=== PATIENT | female | born 1985 | race American Indian/Alaskan Native ===

== ENCOUNTER 2017-07-05 18:17 | Emergency (ER) | payer OTHER ==
[2017-07-05 20:00] LABS: Basophils % (Auto) 0.4 % (0.0-1.8); Eosinophils # (Auto) 0.2 K/mm3 (0.0-0.4); Hematocrit 36.5 % (30.3-42.9); Lymphocytes # (Auto) 1.8 K/mm3 (1.2-5.4); Lymphocytes % (Auto) 22.6 % (13.4-35.0); Mean Corpuscular HGB Conc 33 % (30-34); Mean Corpuscular Hemoglobin 29 pg (28-32); Mean Corpuscular Volume 89 fl (79-97); Monocytes # (Auto) 0.7 K/mm3 (0.0-0.8); Monocytes % (Auto) 9.1 % (0.0-7.3); Platelet Count 271 K/mm3 (140-440); Red Blood Count 4.12 M/mm3 (3.65-5.03); Red Cell Distribution Width 12.9 % (13.2-15.2)
[2017-07-05 20:28] LABS: Alanine Aminotransferase 6 units/L (7-56); Albumin 4.3 g/dL (3.9-5); BUN/Creatinine Ratio 13; Blood Urea Nitrogen 8 mg/dL (7-17); Calcium 8.9 mg/dL (8.4-10.2); Hemolysis Index 18
[2017-07-05] MEDS ORDERED: ZOFRAN ODT PO ONE (20:44)
[2017-07-05] MEDS ORDERED: MOTRIN PO ONE (20:47)
--- NOTE | 2017-07-05 20:47 | Emergency Department Report ---
<MIS INGRAM - Last Filed: 07/05/17 23:18> ED Female HPI - General Chief complaint: Abdominal Pain Stated complaint: PELVIC PAIN Time Seen by Provider: 07/05/17 20:39 Source: patient Mode of arrival: Ambulatory Limitations: No Limitations - History of Present Illness Initial comments: 32-year-old -Maldivian female with a past medical history endometriosis and ovarian cysts comes in today for complaint of pelvic pain. Patient reports that pain started 2 days ago. She reports that the pain was severe enough for her to take her ibuprofen on Tuesday night which she report help but woke up today Tuesday with pelvic pain and did not take any medication. Patient reports that she was seen by her [facility] doctor 2 [address] Jacki Comer at [facility] in detail. She reports at that time there were not able to locate her IUD. Patient reports that the pain is very similar to the last time she had an ovarian cyst. Patient reports that her IUD is over due to come out. And that her [facility] doctor mentions something about doing surgery to get it out. Patient denies any vaginal bleeding denies any vaginal discharge. MD Complaint: pelvic pain -: During the night Location: suprapubic Severity scale (0 -10): 9 Quality: cramping Consistency: constant Improves with: medication Worsens with: menstrual period Associated Symptoms: abdominal pain. denies: vaginal discharge, vaginal bleeding, loss of appetite, dysuria, shortness of breath, syncope, weakness - Related Data Sexually active: Yes (L foot pain) Previous Rx's Medication Instructions Recorded Last Taken Type metroNIDAZOLE [Metronidazole] 500 mg PO BID #14 tablet 07/06/17 Unknown Rx traMADol [Ultram 50 MG tab] 50 mg PO Q6HR PRN #30 tablet 07/06/17 Unknown Rx Allergies Allergy/AdvReac Type Severity Reaction Status Date / Time No Known Allergies Allergy Unverified 07/05/17 19:32 ED Review of Systems ROS: Stated complaint: PELVIC PAIN Other details as noted in HPI Constitutional: denies: chills, fever Eyes: denies: eye pain, eye discharge, vision change ENT: denies: ear pain, throat pain Respiratory: denies: cough, shortness of breath, wheezing Cardiovascular: denies: chest pain, palpitations Endocrine: no symptoms reported Gastrointestinal: as per HPI, abdominal pain (pelvic pain), nausea. denies: vomiting, diarrhea, constipation, hematemesis, melena, hematochezia Genitourinary: frequency. denies: dysuria Musculoskeletal: denies: back pain Skin: denies: rash, lesions Neurological: denies: headache, weakness, paresthesias Psychiatric: denies: anxiety, depression Hematological/Lymphatic: denies: easy bleeding, easy bruising ED Past Medical Hx - Past Medical History Previous Medical History?: Yes Additional medical history: endometriosis - Surgical History Past Surgical History?: Yes Additional Surgical History: tonsils removed, laser sx for cyst removal, bunion removed - Social History Smoking Status: Never Smoker Substance Use Type: None - Medications Home Medications: Home Medications Medication Instructions Recorded Confirmed Last Taken Type metroNIDAZOLE [Metronidazole] 500 mg PO BID #14 tablet 07/06/17 Unknown Rx traMADol [Ultram 50 MG tab] 50 mg PO Q6HR PRN #30 tablet 07/06/17 Unknown Rx ED Physical Exam - General Limitations: No Limitations General appearance: alert, in no apparent distress - Head Head exam: Present: atraumatic, normocephalic - Eye Eye exam: Present: normal appearance - ENT ENT exam: Present: mucous membranes moist - Neck Neck exam: Present: normal inspection - Respiratory Respiratory exam: Present: normal lung sounds bilaterally. Absent: respiratory distress - Cardiovascular Cardiovascular Exam: Present: regular rate, normal rhythm. Absent: systolic murmur, diastolic murmur, rubs, gallop - GI/Abdominal GI/Abdominal exam: Present: soft, normal bowel sounds - Speculum exam: Present: vaginal discharge, cervical discharge Bi-manual exam: Present: normal bi-manual exam. Absent: cervical motion tendernes, adnexal tenderness, adnexal mass, uterine enlargement, uterine tenderness - Extremities Exam Extremities exam: Present: normal inspection - Back Exam Back exam: Present: normal inspection - Neurological Exam Neurological exam: Present: alert, oriented X3 - Psychiatric Psychiatric exam: Present: normal affect, normal mood - Skin Skin exam: Present: warm, dry, intact, normal color. Absent: rash ED Course Vital Signs 07/05/17 07/05/17 19:32 20:47 Temperature 98.4 F 99.4 F Pulse Rate 88 81 Respiratory 16 Rate Blood Pressure 137/88 125/85 O2 Sat by Pulse 14 L 100 Oximetry - Reevaluation(s) Reevaluation #1: 07/05/17 23:18 Patient reports that her abdominal pain/pelvic pain has improved since having Zofran and ibuprofen. ED Medical Decision Making - Lab Data Result diagrams: 07/05/17 19:40 07/05/17 19:40 - Medical Decision Making Patient has been evaluated by this provider fast track. I discussed the patient after doing her pelvic exam that we will go ahead and do culture since she does have some vaginal discharge but that is greenish yellow. Cultures were sent for GC chlamydia and wet prep. Also discussed the patient will do a ultrasound of her pelvic considering that I do not appreciate her IUD string. And as well as she is having pelvic pain and discomfort. Also discussed the patient that I give her ibuprofen for pain and Zofran for nausea. Also discussed patient that I will go ahead and treat her for GC chlamydia and waiting for wet prep results to determine if we need to treat her for any Trichomonas, bacterial infection, yeast infection. Patient verbalized understanding. PATSY [place] will discharge patient after wet prep and ultrasound results are completed. Critical care attestation.: If time is entered above; I have spent that time in minutes in the direct care of this critically ill patient, excluding procedure time. ED Disposition Clinical Impression: Bacterial vaginosis, Endometriosis Disposition: - TO HOME OR SELFCARE Condition: Stable Instructions: Bacterial Vaginosis (ED), Endometriosis (ED), Chronic Pelvic Pain in Women (ED), Ovarian Cyst (ED) Additional Instructions: Make sure to follow up with the obgyn as discussed. Take all your medications as you've been prescribed. If you have any worsening symptoms or develop new symptoms please return to ED immediately. Prescriptions: metroNIDAZOLE [Metronidazole] 500 mg PO BID #14 tablet traMADol [Ultram 50 MG tab] 50 mg PO Q6HR PRN #30 tablet PRN Reason: Pain Referrals: SHARRON DICK MD [Primary Care Provider] - 3-5 Days FOUZIA CARBAJAL MD [Referring] - 3-5 Days [facility] [Provider Group] - 3-5 Days [facility] [Provider Group] - 3-5 Days [facility] [Provider Group] - 3-5 Days Forms: STI Treatment and Prevention <CAYDEN [place] - Last Filed: 07/06/17 00:49> ED Medical Decision Making - Lab Data Result diagrams: 07/05/17 19:40 07/05/17 19:40 - Radiology Data Radiology results: report reviewed, image reviewed FINDINGS: UTERUS Size: 8 x 4.2 x 6 cm. Endometrial thickness: 6.9 mm. IUD is in proper position. Orientation: anteverted. Cervix: Normal. Fibroids/masses: None. RIGHT Ovary: 2.7 x 2.3 x 3.1 cm. Appearance: Normal. LEFT Ovary: 4.8 x 2.8 x 2.7 cm. Appearance: There are 2 isoechoic areas measuring up to 2.7 centimeters which could be hemorrhagic cysts.. Endometriomas not excluded. Pelvic fluid: None. Other: None. IMPRESSION: The IUD is in proper position. There is no ovarian torsion or mass. There are probable hemorrhagic cyst in the left ovary measuring up to 2.7 centimeters. Endometriomas not excluded. There is no free pelvic fluid.. Transcribed By: CO Dictated By: VIGNESH GORDILLO MD Electronically Authenticated By: VIGNESH GORDILLO MD Signed Date/Time: 07/06/17 0004 - Medical Decision Making This is a 32-year-old stable patient Wet. Prep Positive for BV otherwise negative Patient was prophylaxis we treat for STDs Joint ultrasound shows no acute findings. I reviewed to be in normal position. I discussed the patient has sometimes IUD string will further up the uterus and will have to be removed in the ED if necessary I discussed the patient to follow-up with her [employer] for IUD removal. Discussed the patient that endometriosis can cause pelvic pain and discomfort. Patient understands instructions given. She has no neuro deficit. ED Disposition Is pt being admited?: No Does the pt Need Aspirin: No Time of Disposition: 00:48
[2017-07-05 20:54] VITALS: BP 125/85
[2017-07-05] MEDS ORDERED: ZITHROMAX PO ONE (22:51)
[2017-07-05] MEDS ORDERED: XYLOCAINE 1% MPF 5 mL INFILTRATI ONE (22:51)
[2017-07-05] MEDS ORDERED: ROCEPHIN IM ONE (22:51)
--- NOTE | 2017-07-06 00:08 | Ultrasound Report ---
FINAL REPORT PROCEDURE: US TRANSVAGINAL TECHNIQUE: Real-time transvaginal sonography in multiple planes of the pelvis was performed with image documentation. This examination was performed without Doppler. Vascular abnormalities, including ovarian torsion, will not be detectable without Doppler evaluation. CPT 54596 HISTORY: pelvic pain with IUD COMPARISON: No prior studies are available for comparison. FINDINGS: UTERUS Size: 8 x 4.2 x 6 cm. Endometrial thickness: 6.9 mm. IUD is in proper position. Orientation: anteverted. Cervix: Normal. Fibroids/masses: None. RIGHT Ovary: 2.7 x 2.3 x 3.1 cm. Appearance: Normal. LEFT Ovary: 4.8 x 2.8 x 2.7 cm. Appearance: There are 2 isoechoic areas measuring up to 2.7 centimeters which could be hemorrhagic cysts.. Endometriomas not excluded. Pelvic fluid: None. Other: None. IMPRESSION: The IUD is in proper position. There is no ovarian torsion or mass. There are probable hemorrhagic cyst in the left ovary measuring up to 2.7 centimeters. Endometriomas not excluded. There is no free pelvic fluid..
--- NOTE | 2017-07-06 00:10 | Ultrasound Report ---
FINAL REPORT PROCEDURE: US PELVIC COMPLETE TECHNIQUE: Real-time transabdominal sonography in multiple planes of the pelvis was performed with image documentation. This examination was performed without Doppler. Vascular abnormalities, including ovarian torsion, will not be detectable without Doppler evaluation. HISTORY: pelvic pain with IUD COMPARISON: No prior studies are available for comparison. FINDINGS: UTERUS Size: 8 x 4.2 x 6 cm. Endometrial thickness: 6.9 mm. IUD is in proper position. Orientation: anteverted. Cervix: Normal. Fibroids/masses: None. RIGHT Ovary: 2.7 x 2.3 x 3.1 cm. Appearance: Normal. LEFT Ovary: 4.8 x 2.8 x 2.7 cm. Appearance: There are 2 isoechoic areas measuring up to 2.7 centimeters which could be hemorrhagic cysts.. Endometriomas not excluded. Pelvic fluid: None. Other: None. IMPRESSION: The IUD is in proper position. There is no ovarian torsion or mass. There are probable hemorrhagic cyst in the left ovary measuring up to 2.7 centimeters. Endometriomas not excluded. There is no free pelvic fluid..
[2017-07-06 00:56] LABS: Bilirubin,Urine NEG (Negative); Blood,Urine NEG (Negative); Color,Urine Yellow (Yellow); Mucus,Urine FEW /HPF; Protein,Urine <15 mg/dL mg/dL (Negative)
[2017-07-06 00:59] LABS: HCG Qualitative,Urine Negative (Negative)
== END 2017-07-06 01:15 | disposition home or self-care (01) ==
LOC: ED 18:17
DX: N76.0 Acute vaginitis (principal); B96.89 Other specified bacterial agents as the cause of diseases classified elsewhere; N80.9 Endometriosis, unspecified; Z90.89 Acquired absence of other organs
CPT/HCPCS: 36415; 76830; 76856; 80053; 81001; 81025; 85025; 87210; 87591; 96372; 99284; J0696; Q0162

== ENCOUNTER 2020-08-18 01:55 | Emergency (ER) | payer MEDICAID, OTHER ==
[2020-08-18 02:51] VITALS: BP 127/76
--- NOTE | 2020-08-18 04:10 | Emergency Department Report ---
ED General Adult HPI - General Chief complaint: Upper Respiratory Infection Stated complaint: SHORTNESS OF BREATH Time Seen by Provider: 08/18/20 03:08 Source: patient Mode of arrival: Ambulatory Limitations: No Limitations - History of Present Illness Initial comments: 35 yo AA F pt without PMHx presents with complaints of congestion, cough, and "feeling bad" x 3 days. She states the cough is productive of yellow mucous, but denies any hemoptysis, chest pain, SOB, or loss of smell/taste. No recent known sick contacts per pt. She does admit to seasonal allergies and states claritin is not helping with her symptoms. Symptoms seem to worsen when outdoors per pt. -: Gradual - Related Data Previous Rx's Medication Instructions Recorded Last Taken Type metroNIDAZOLE [Metronidazole] 500 mg PO BID #14 tablet 07/06/17 Unknown Rx traMADoL [Ultram 50 MG tab] 50 mg PO Q6HR PRN #30 tablet 07/06/17 Unknown Rx Dextromethorphan Polistirex 10 ml PO Q12HR PRN #1 gia.er.12h 08/18/20 Unknown Rx [Delsym] Levocetirizine Dihydrochloride 5 mg PO QHS PRN #30 tablet 08/18/20 Unknown Rx [Xyzal] Prednisone [predniSONE 5 mg (6-Day 5 mg PO .TAPER #1 tab.ds.pk 08/18/20 Unknown Rx Pack, 21 Tabs)] Allergies Allergy/AdvReac Type Severity Reaction Status Date / Time No Known Allergies Allergy Unverified 07/05/17 19:32 ED Review of Systems ROS: Stated complaint: SHORTNESS OF BREATH Other details as noted in HPI Constitutional: malaise. denies: chills, diaphoresis, fever ENT: congestion. denies: throat pain Respiratory: cough. denies: shortness of breath Cardiovascular: denies: chest pain Gastrointestinal: denies: abdominal pain, nausea, vomiting Musculoskeletal: denies: back pain Neurological: denies: headache, numbness ED Past Medical Hx - Past Medical History Additional medical history: endometriosis - Surgical History Additional Surgical History: tonsils removed, laser sx for cyst removal, bunion removed - Social History Smoking Status: Never Smoker - Medications Home Medications: Home Medications Medication Instructions Recorded Confirmed Last Taken Type metroNIDAZOLE [Metronidazole] 500 mg PO BID #14 tablet 07/06/17 Unknown Rx traMADoL [Ultram 50 MG tab] 50 mg PO Q6HR PRN #30 tablet 07/06/17 Unknown Rx Dextromethorphan Polistirex 10 ml PO Q12HR PRN #1 gia.er.12h 08/18/20 Unknown Rx [Delsym] Levocetirizine Dihydrochloride 5 mg PO QHS PRN #30 tablet 08/18/20 Unknown Rx [Xyzal] Prednisone [predniSONE 5 mg (6-Day 5 mg PO .TAPER #1 tab.ds.pk 08/18/20 Unknown Rx Pack, 21 Tabs)] ED Physical Exam - General Limitations: No Limitations General appearance: alert, in no apparent distress - Head Head exam: Present: atraumatic - Eye Eye exam: Present: normal appearance - ENT ENT exam: Present: normal orophraynx, other (no sinus tenderness to palpation no leah) - Neck Neck exam: Present: normal inspection, full ROM. Absent: lymphadenopathy - Respiratory Respiratory exam: Present: normal lung sounds bilaterally. Absent: respiratory distress - Cardiovascular Cardiovascular Exam: Present: regular rate, normal rhythm - Back Exam Back exam: Present: full ROM - Neurological Exam Neurological exam: Present: alert, oriented X3, normal gait - Psychiatric Psychiatric exam: Present: normal affect, normal mood - Skin Skin exam: Present: warm, dry, intact, normal color. Absent: rash ED Course Vital Signs 08/18/20 02:50 Temperature 98.7 F Pulse Rate 96 H Respiratory 20 Rate Blood Pressure 127/76 O2 Sat by Pulse 98 Oximetry ED Medical Decision Making - Radiology Data Radiology results: report reviewed CHEST 2 VIEWS INDICATION: cough, fatigue. COMPARISON: None. FINDINGS: Support devices: None. Heart: Within normal limits. Lungs/Pleura: No acute air space or interstitial disease. No significant pleural effusion. IMPRESSION: No acute findings. - Medical Decision Making 35 yo AA F pt without PMHx presents with complaints of congestion, cough, and "feeling bad" x 3 days. She states the cough is productive of yellow mucous, but denies any hemoptysis, chest pain, SOB, or loss of smell/taste. No recent known sick contacts per pt. She does admit to seasonal allergies and states claritin is not helping with her symptoms. Symptoms seem to worsen when outdoors per pt. Lungs are clear on exam. CXR is normal. Pt is afebrile and non tachycardic. Will treat for viral URI with prednisone, levocetirizine, and delsym. Recommend f/u with PCP in 3-5 days and covid 19 testing. SHe is well appearing and stable for d/c home. Pt given strict return precautions and states understanding. Critical care attestation.: If time is entered above; I have spent that time in minutes in the direct care of this critically ill patient, excluding procedure time. ED Disposition Clinical Impression: Viral URI with cough Disposition: TO HOME OR SELFCARE Is pt being admited?: No Condition: Stable Instructions: Cough, Adult, Upper Respiratory Infection, Adult, [id number] Prescriptions: Levocetirizine Dihydrochloride [Xyzal] 5 mg PO QHS PRN #30 tablet PRN Reason: Congestion Dextromethorphan Polistirex [Delsym] 10 ml PO Q12HR PRN #1 gia.er.12h PRN Reason: Cough Prednisone [predniSONE 5 mg (6-Day Pack, 21 Tabs)] 5 mg PO .TAPER #1 tab.ds.pk Referrals: PRIMARY CARE, [Primary Care Provider] - 3-5 Days [facility] [Provider Group] - 3-5 Days
--- NOTE | 2020-08-18 04:47 | XRay Report ---
CHEST 2 VIEWS INDICATION: cough, fatigue. COMPARISON: None. FINDINGS: Support devices: None. Heart: Within normal limits. Lungs/Pleura: No acute air space or interstitial disease. No significant pleural effusion. IMPRESSION: No acute findings. Signer Name: Jacob Zamora MD Signed: 08/18/2020 4:42 AM Workstation Name: [id number]
== END 2020-08-18 07:37 | disposition home or self-care (01) ==
LOC: ED 01:55
DX: J06.9 Acute upper respiratory infection, unspecified (principal); B97.89 Other viral agents as the cause of diseases classified elsewhere; R05 Cough; Z79.2 Long term (current) use of antibiotics; Z79.899 Other long term (current) drug therapy
CPT/HCPCS: 71046; 82962

== ENCOUNTER 2020-09-26 15:41 | Emergency (ER) | payer MEDICAID, OTHER ==
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
[2020-09-26 22:12] VITALS: BP 122/60
== END 2020-09-26 22:45 | disposition home or self-care (01) ==
LOC: ED 15:41
DX: S39.012A Strain of muscle, fascia and tendon of lower back, initial encounter (principal); S70.02XA Contusion of left hip, initial encounter; S70.01XA Contusion of right hip, initial encounter; Z98.890 Other specified postprocedural states; Z79.899 Other long term (current) drug therapy; V49.49XA Driver injured in collision with other motor vehicles in traffic accident, initial encounter; Y93.89 Activity, other specified; Y92.410 Unspecified street and highway as the place of occurrence of the external cause; Y99.8 Other external cause status
CPT/HCPCS: 72100

== ENCOUNTER 2020-11-16 20:16 | Emergency (ER) | payer MEDICAID, OTHER ==
[2020-11-16 21:26] VITALS: BP 133/92
[2020-11-16] MEDS ORDERED: ACETAMINOPHEN 500 MG TAB PO ONE (23:50)
--- NOTE | 2020-11-16 23:55 | Emergency Department Report ---
ED General Adult HPI - General Chief complaint: Headache Stated complaint: headache Time Seen by Provider: 11/16/20 23:34 Source: patient Mode of arrival: Ambulatory Limitations: No Limitations - History of Present Illness Initial comments: 35-year-old female patient presents to the emergency department with complaints of headache, nonproductive cough, and myalgias starting today. No known sick contacts. No current steroid or antibiotic use. No recent travel. Patient did not receive her COVID-19 vaccine series. Patient has not been tested for COVID- 19 since her symptoms began. She took Delsym with limited relief. No known history of pre-existing lung conditions. Denies fever, chills, shortness of breath, nausea, vomiting, diarrhea, wheezing, hemoptysis. Denies all other complaints at this time. - Related Data Previous Rx's Medication Instructions Recorded Last Taken Type metroNIDAZOLE [Metronidazole] 500 mg PO BID #14 tablet 07/06/17 Unknown Rx traMADoL [Ultram 50 MG tab] 50 mg PO Q6HR PRN #30 tablet 07/06/17 Unknown Rx Dextromethorphan Polistirex 10 ml PO Q12HR PRN #1 gia.er.12h 08/18/20 Unknown Rx [Delsym] Levocetirizine Dihydrochloride 5 mg PO QHS PRN #30 tablet 08/18/20 Unknown Rx [Xyzal] Prednisone [predniSONE 5 mg (6-Day 5 mg PO .TAPER #1 tab.ds.pk 08/18/20 Unknown Rx Pack, 21 Tabs)] Ketorolac [Toradol] 10 mg PO Q6H PRN #15 tablet 09/26/20 Unknown Rx methOCARBAMOL [Robaxin TAB] 750 mg PO Q8H PRN #14 tablet 09/26/20 Unknown Rx Allergies Allergy/AdvReac Type Severity Reaction Status Date / Time No Known Allergies Allergy Unverified 07/05/17 19:32 ED Review of Systems ROS: Stated complaint: SINUS PRESSURE/HEADACHE Other details as noted in HPI Other: GENERAL: Negative for fever, chills, weight change, anorexia, fatigue. ENT: Negative for ear pain, difficulty hearing, sore throat, nasal congestion, epistaxis. CARDIOVASCULAR: Negative for chest pain, palpitations, lower extremity swelling. PULMONARY: Positive for cough. GASTROINTESTINAL: Negative for abdominal pain, nausea, vomiting, diarrhea, constipation. MUSCULOSKELETAL: Positive for myalgias. NEUROLOGICAL: Positive for headache. INTEGUMENTARY: Negative for erythema, rash, diaphoresis, laceration, ecchymosis. HEMATOLOGICAL: Negative for hemoptysis, hematemesis, hematochezia, hematuria. PSYCHIATRIC: Negative for hallucinations, suicidal ideation, homicidal ideation, anxiety, depression. ED Past Medical Hx - Past Medical History Previous Medical History?: No Additional medical history: endometriosis - Surgical History Past Surgical History?: Yes Additional Surgical History: tonsils removed, laser sx for cyst removal, bunion removed - Social History Smoking Status: Never Smoker Substance Use Type: Alcohol - Medications Home Medications: Home Medications Medication Instructions Recorded Confirmed Last Taken Type metroNIDAZOLE [Metronidazole] 500 mg PO BID #14 tablet 07/06/17 Unknown Rx traMADoL [Ultram 50 MG tab] 50 mg PO Q6HR PRN #30 tablet 07/06/17 Unknown Rx Dextromethorphan Polistirex 10 ml PO Q12HR PRN #1 gia.er.12h 08/18/20 Unknown Rx [Delsym] Levocetirizine Dihydrochloride 5 mg PO QHS PRN #30 tablet 08/18/20 Unknown Rx [Xyzal] Prednisone [predniSONE 5 mg (6-Day 5 mg PO .TAPER #1 tab.ds.pk 08/18/20 Unknown Rx Pack, 21 Tabs)] Ketorolac [Toradol] 10 mg PO Q6H PRN #15 tablet 09/26/20 Unknown Rx methOCARBAMOL [Robaxin TAB] 750 mg PO Q8H PRN #14 tablet 09/26/20 Unknown Rx ED Physical Exam - General Limitations: No Limitations - Other Other exam information: General: Awake and alert. No acute distress. Head: Atraumatic, normocephalic. Eyes: EOMI. Pupils are equal and round. Normal sclera and conjunctiva. ENT: Oral mucosa is moist. Normal pharyngeal exam. Normal otoscopic exam. Neck: Supple. No lymphadenopathy. Pulmonary: No respiratory distress. Clear to auscultation bilaterally. Cardiac: Regular rate and rhythm. Pulses are palpable and equal bilaterally. No lower extremity cyanosis or edema. Skin: Warm and dry. No rashes. Abdomen: Soft, non-tender, non-protuberant. No guarding, rigidity, or rebound. Bowel sounds are normal. No organomegaly or masses noted. Back: Normal alignment. No CVA tenderness. Extremities: Symmetrical. Full range of motion intact. Neurological: Alert and oriented, appropriately interactive, no focal deficits. Psych: Cooperative. Appropriate mood and affect. Speech is evenly metered. Thoughts are logically construed. ED Course Vital Signs 11/16/20 21:24 Temperature 99.3 F Pulse Rate 93 H Respiratory 18 Rate Blood Pressure 133/92 O2 Sat by Pulse 98 Oximetry ED Medical Decision Making - Medical Decision Making Patient presents to the emergency department with signs/symptoms suggestive of viral illness. She is afebrile, hemodynamically stable, no hypoxia, no respiratory distress, tolerating oral intake without difficulty. There is no nuchal rigidity. There is no rash. Neurological exam is nonfocal. COVID-19 testing is currently unavailable at this facility. No clinical indication for further diagnostic work-up on an emergent basis at this time. Patient will be discharged home with instructions for appropriate symptomatic treatment and referred to primary care provider for close outpatient follow-up. Patient expressed understanding and is agreeable to plan of care. Disease transmission precautions discussed. Strict return precautions provided. History, exam, diagnostic testing, and current condition do not suggest worrisome pathology to warrant further testing, continued ED treatment, admission, or surgical evaluation at this point. Given the low probability of a significant medical illness, it would be more likely to result in harm than benefit to perform further testing at this stage. Discussed findings, presumptive diagnosis, need for follow-up and specific signs/symptoms that should prompt immediate return to the emergency department. Instructions were explained in detail to the patient in addition to giving written discharge information. Patient expressed understanding and was given the opportunity to ask questions, all of which were satisfactorily answered prior to discharge home. Critical care attestation.: If time is entered above; I have spent that time in minutes in the direct care of this critically ill patient, excluding procedure time. ED Disposition Clinical Impression: Viral illness Disposition: DC-01 TO HOME OR SELFCARE Is pt being admited?: No Does the pt Need Aspirin: No Condition: Stable Instructions: Viral Respiratory Infection Additional Instructions: Take Tylenol 1000 mg every 4 hours and Motrin 800 mg every 8 hours as needed for pain/fever. Use [id number] cough/cold remedies as needed for symptomatic relief. Rest. Drink plenty of fluids. Wash hands frequently to prevent disease transmission. Do not share food or drinks with others. Please adhere to CDC guidelines regarding self-isolation precautions. Follow-up with primary care provider this week. Call tomorrow to schedule an appointment. See referral information below. Return to the emergency department immediately for new or worsening symptoms. Specifically, return to the emergency department immediately for difficulty breathing, dehydration, mental status changes, worsening headache, loss of consciousness, neck stiffness, rash, or any other concerns. Referrals: HARRISON PANCHAL MD [Staff Physician] - 3-5 Days [facility] [Provider Group] - 3-5 Days Forms: Work/School Release Form(ED) Time of Disposition: 23:54
== END 2020-11-17 00:38 | disposition home or self-care (01) ==
LOC: ED 20:16
DX: B34.9 Viral infection, unspecified (principal); C54.1 Malignant neoplasm of endometrium; Z98.890 Other specified postprocedural states
CPT/HCPCS: 99282

== ENCOUNTER 2020-12-13 12:03 | Emergency (ER) | payer OTHER, MEDICAID ==
[2020-12-13 12:45] VITALS: BP 124/86
--- NOTE | 2020-12-13 12:49 | Emergency Department Report ---
ED Back Pain/Injury HPI - General Chief Complaint: Back Pain/Injury Stated Complaint: LO BACK PAIN,PELVIC PAIN Time Seen by Provider: 12/13/20 12:32 Source: patient Limitations: No Limitations - History of Present Illness Initial Comments: Patient is a 35-year-old female presents emergency room with complaints of low back pain that occurred today while she was at work. Patient states that she has left lower back pain that radiates down her left leg. She denies any fall or injury. States that she works at the [employer] and does repetitive movements and heavy lifting. She denies any fever, nausea, vomiting, diarrhea, numbness, weakness, bowel or bladder incontinence, urinary symptoms. Past medical history of endometriosis. She denies any medication allergies. She states that her last menstrual cycle was 06 December 2020 but she states that it only lasted 2 days and she states that she is not sure if she is . - Related Data Previous Rx's Medication Instructions Recorded Last Taken Type metroNIDAZOLE [Metronidazole] 500 mg PO BID #14 tablet 07/06/17 Unknown Rx traMADoL [Ultram 50 MG tab] 50 mg PO Q6HR PRN #30 tablet 07/06/17 Unknown Rx Dextromethorphan Polistirex 10 ml PO Q12HR PRN #1 gia.er.12h 08/18/20 Unknown Rx [Delsym] Levocetirizine Dihydrochloride 5 mg PO QHS PRN #30 tablet 08/18/20 Unknown Rx [Xyzal] Prednisone [predniSONE 5 mg (6-Day 5 mg PO .TAPER #1 tab.ds.pk 08/18/20 Unknown Rx Pack, 21 Tabs)] Ketorolac [Toradol] 10 mg PO Q6H PRN #15 tablet 09/26/20 Unknown Rx methOCARBAMOL [Robaxin TAB] 750 mg PO Q8H PRN #14 tablet 09/26/20 Unknown Rx Menthol/Camphor [[place] 1 applicatio TP BID #18 oint...g. 12/13/20 Unknown Rx Ointment] Naproxen 375 mg PO BID PRN #20 tablet 12/13/20 Unknown Rx cephALEXin [Keflex] 500 mg PO BID 7 Days #14 capsule 12/13/20 Unknown Rx methOCARBAMOL [Robaxin TAB] 500 mg PO BID PRN #14 tab 12/13/20 Unknown Rx Allergies Allergy/AdvReac Type Severity Reaction Status Date / Time No Known Allergies Allergy Verified 12/13/20 12:13 ED Review of Systems ROS: Stated complaint: LO BACK PAIN,PELVIC PAIN Other details as noted in HPI Comment: All other systems reviewed and negative ED Past Medical Hx - Past Medical History Previous Medical History?: Yes Additional medical history: endometriosis - Surgical History Additional Surgical History: tonsils removed, laser sx for cyst removal, bunion removed - Social History Smoking Status: Never Smoker Substance Use Type: Alcohol - Medications Home Medications: Home Medications Medication Instructions Recorded Confirmed Last Taken Type metroNIDAZOLE [Metronidazole] 500 mg PO BID #14 tablet 07/06/17 Unknown Rx traMADoL [Ultram 50 MG tab] 50 mg PO Q6HR PRN #30 tablet 07/06/17 Unknown Rx Dextromethorphan Polistirex 10 ml PO Q12HR PRN #1 gia.er.12h 08/18/20 Unknown Rx [Delsym] Levocetirizine Dihydrochloride 5 mg PO QHS PRN #30 tablet 08/18/20 Unknown Rx [Xyzal] Prednisone [predniSONE 5 mg (6-Day 5 mg PO .TAPER #1 tab.ds.pk 08/18/20 Unknown Rx Pack, 21 Tabs)] Ketorolac [Toradol] 10 mg PO Q6H PRN #15 tablet 09/26/20 Unknown Rx methOCARBAMOL [Robaxin TAB] 750 mg PO Q8H PRN #14 tablet 09/26/20 Unknown Rx Menthol/Camphor [[place] 1 applicatio TP BID #18 oint...g. 12/13/20 Unknown Rx Ointment] Naproxen 375 mg PO BID PRN #20 tablet 12/13/20 Unknown Rx cephALEXin [Keflex] 500 mg PO BID 7 Days #14 capsule 12/13/20 Unknown Rx methOCARBAMOL [Robaxin TAB] 500 mg PO BID PRN #14 tab 12/13/20 Unknown Rx ED Physical Exam - General Limitations: No Limitations General appearance: alert, in no apparent distress - Head Head exam: Present: atraumatic, normocephalic - Eye Eye exam: Present: normal appearance - ENT ENT exam: Present: mucous membranes moist - Neck Neck exam: Present: normal inspection, full ROM. Absent: tenderness, meningismus - Respiratory Respiratory exam: Present: normal lung sounds bilaterally. Absent: respiratory distress, wheezes, rales, rhonchi, stridor, chest wall tenderness, accessory muscle use, decreased breath sounds, prolonged expiratory - Cardiovascular Cardiovascular Exam: Present: regular rate, normal rhythm, normal heart sounds. Absent: systolic murmur, diastolic murmur, rubs, gallop - Back Exam Back exam: Present: normal inspection, full ROM, paraspinal tenderness (left sided lumbar paraspinal muscular ttp, no midline C-spine, T-spine or L-spine ttp, no step offs, no deformities). Absent: vertebral tenderness - Neurological Exam Neurological exam: Present: alert, oriented X3, CN II-XII intact, normal gait. Absent: motor sensory deficit - Psychiatric Psychiatric exam: Present: normal affect, normal mood - Skin Skin exam: Present: warm, dry, intact ED Course Vital Signs 12/13/20 12/13/20 12:16 14:23 Temperature 98.2 F Pulse Rate 58 L 72 Respiratory 18 Rate Blood Pressure 124/86 O2 Sat by Pulse 99 99 Oximetry ED Medical Decision Making - Lab Data Lab Results 12/13/20 Range/Units Unknown Urine Color Yellow (Yellow) Urine Turbidity Slightly-cloudy (Clear) Urine pH 6.0 (5.0-7.0) Ur Specific [place] 1.011 (1.003-1.030) Urine Protein <15 mg/dl (Negative) mg/dL Urine Glucose (UA) Neg (Negative) mg/dL Urine Ketones Neg (Negative) mg/dL Urine Blood Neg (Negative) Urine Nitrite Neg (Negative) Ur Reducing Substances Not Reportable Urine Bilirubin Neg (Negative) Urine Ictotest Not Reportable Urine Urobilinogen 2.0 (<2.0) mg/dL Ur Leukocyte Esterase Sm (Negative) Urine WBC (Auto) 8.0 H (0.0-6.0) /HPF Urine RBC (Auto) 7.0 (0.0-6.0) /HPF U Epithel Cells (Auto) 20.0 H (0-13.0) /HPF Urine Bacteria (Auto) 1+ (Negative) /HPF Urine Mucus Few /HPF Urine HCG, Qual Negative (Negative) - Medical Decision Making Patient is a 35-year-old female presents emergency room with complaints of low back pain that occurred today while she was at work. Patient states that she has left lower back pain that radiates down her left leg. She denies any fall or injury. States that she works at the [employer] office and does repetitive movements and heavy lifting. She denies any fever, nausea, vomiting, diarrhea, numbness, weakness, bowel or bladder incontinence, urinary symptoms. Past medical history of endometriosis. She denies any medication allergies. She states that her last menstrual cycle was 06 December 2020 but she states that it only lasted 2 days and she states that she is not sure if she is . Vitals are stable. On exam:left sided lumbar paraspinal muscular ttp, no midline C-spine, T-spine or L-spine ttp, no step offs, no deformities, no focal neuro deficits. Symptoms and examination appear most consistent with sciatica versus lumbar radiculopathy. UA shows 1+ bacteria, white blood cells, small leukocyte esterase, could be due to UTI but there are many epithelial cells which could be from contamination, given that she is having back pain, will cover for UTI. Patient given Toradol and dexamethasone IM while in the emergency department with improvement of symptoms. Patient has no red flag warning signs of low back pain, no trauma, no unexplained weight loss, no fever, no IV drug use, no steroid use, no history of cancer. Advised patient Please take medication as prescribed. Do not drive or operate heavy machinery while taking muscle relaxer Robaxin. May use ice pack, heating pad, rest, epsom salt bath. Follow-up with a primary care doctor for reexamination. Follow-up with a ignition specialist. Return to emergency room for any new or worsening symptoms. Critical care attestation.: If time is entered above; I have spent that time in minutes in the direct care of this critically ill patient, excluding procedure time. ED Disposition Clinical Impression: Low back pain Qualifiers: Chronicity: acute Back pain laterality: left Sciatica presence: with sciatica Sciatica laterality: sciatica of left side Qualified Code(s): M54.42 - Lumbago with sciatica, left side UTI (urinary tract infection) Qualifiers: Urinary tract infection type: acute cystitis Hematuria presence: without hematuria Qualified Code(s): N30.00 - Acute cystitis without hematuria Disposition: HOME / SELF CARE / HOMELESS Is pt being admited?: No Does the pt Need Aspirin: No Condition: Stable Instructions: Sciatica, Urinary Tract Infection, Adult Additional Instructions: Please take medication as prescribed. Do not drive or operate heavy machinery while taking muscle relaxer Robaxin. May use ice pack, heating pad, rest, epsom salt bath. Follow-up with a primary care doctor for reexamination. Follow-up with a ignition specialist. Return to emergency room for any new or worsening symptoms. Prescriptions: cephALEXin [Keflex] 500 mg PO BID 7 Days #14 capsule Naproxen 375 mg PO BID PRN #20 tablet PRN Reason: pain methOCARBAMOL [Robaxin TAB] 500 mg PO BID PRN #14 tab PRN Reason: muscle spasm/pain Menthol/Camphor [[place] Ointment] 1 applicatio TP BID #18 oint...g. Referrals: PRIMARY CAREMD [Primary Care Provider] - 2-3 Days AMELIE TORRES II, MD [Staff Physician] - 2-3 Days Time of Disposition: 13:33 Print Language: SAMOAN
[2020-12-13 13:25] LABS: HCG Qualitative,Urine Negative (Negative)
[2020-12-13 13:26] LABS: Bacteria,Urine 1+ /HPF (Negative); Bilirubin,Urine NEG (Negative); Blood,Urine NEG (Negative); Color,Urine Yellow (Yellow); Mucus,Urine FEW /HPF; Protein,Urine <15 mg/dL mg/dL (Negative)
[2020-12-13] MEDS ORDERED: dexAMETHasone 20 MG/5 ML VIAL IM ONE (13:28)
[2020-12-13] MEDS ORDERED: KETOROLAC 60 MG/2 ML INJ IM ONE (13:28)
== END 2020-12-13 14:33 | disposition home or self-care (01) ==
LOC: ED 12:03
DX: N39.0 Urinary tract infection, site not specified (principal); M54.5 Low back pain; Z85.42 Personal history of malignant neoplasm of other parts of uterus; Z98.890 Other specified postprocedural states
CPT/HCPCS: 81001; 81025; 96372; 99283; J1100; J1885

== ENCOUNTER 2021-11-19 12:57 | Emergency (ER) | payer MEDICAID, OTHER ==
[2021-11-19 13:24] VITALS: BP 133/91
[2021-11-19 14:13] LABS: Basophils % (Auto) 0.5 % (0.0-1.8); Eosinophils # (Auto) 0.1 K/mm3 (0.0-0.4); Eosinophils % (Auto) 2.1 % (0.0-4.3); Hematocrit 35.5 % (30.3-42.9); Hemoglobin 11.9 gm/dl (10.1-14.3); Lymphocytes # (Auto) 1.6 K/mm3 (1.2-5.4); Lymphocytes % (Auto) 40.2 % (13.4-35.0); Mean Corpuscular HGB Conc 34 % (30-34); Mean Corpuscular Volume 90 fl (79-97); Monocytes # (Auto) 0.3 K/mm3 (0.0-0.8); Monocytes % (Auto) 8.4 % (0.0-7.3); Platelet Count 315 K/mm3 (140-440); Red Blood Count 3.94 M/mm3 (3.65-5.03); Red Cell Distribution Width 12.8 % (13.2-15.2)
[2021-11-19 14:40] LABS: Albumin 4.6 g/dL (3.9-5); Blood Urea Nitrogen 8 mg/dL (7-17); Calcium 9.1 mg/dL (8.4-10.2); Hemolysis Index 3
[2021-11-19 15:02] LABS: Alanine Aminotransferase < 5 units/L (7-56); BUN/Creatinine Ratio 11
--- NOTE | 2021-11-19 17:42 | Emergency Department Report ---
ED Female HPI - General Chief complaint: Vaginal Bleeding Stated complaint: HEAVY CLOTTING CYCLE Time Seen by Provider: 11/19/21 17:36 Source: patient Mode of arrival: Ambulatory Limitations: No Limitations - History of Present Illness Initial comments: 36-year-old female with no significant past medical history complains of having vaginal bleeding today. Says she is passing some heavy clots. Denies having any abdominal pelvic pain. denies any fever chills dysuria Complaint: vaginal bleeding -: Gradual, days(s) (1) Severity: mild Consistency: intermittent Improves with: none Worsens with: none Are you Now?: No Associated Symptoms: vaginal bleeding - Related Data Sexually active: Yes Previous Rx's Medication Instructions Recorded Last Taken Type metroNIDAZOLE [Metronidazole] 500 mg PO BID #14 tablet 07/06/17 Unknown Rx traMADoL [Ultram 50 MG tab] 50 mg PO Q6HR PRN #30 tablet 07/06/17 Unknown Rx Dextromethorphan Polistirex 10 ml PO Q12HR PRN #1 gia.er.12h 08/18/20 Unknown Rx [Delsym] Levocetirizine Dihydrochloride 5 mg PO QHS PRN #30 tablet 08/18/20 Unknown Rx [Xyzal] Prednisone [predniSONE 5 mg (6-Day 5 mg PO .TAPER #1 tab.ds.pk 08/18/20 Unknown Rx Pack, 21 Tabs)] Ketorolac [Toradol] 10 mg PO Q6H PRN #15 tablet 09/26/20 Unknown Rx methOCARBAMOL [Robaxin TAB] 750 mg PO Q8H PRN #14 tablet 09/26/20 Unknown Rx Menthol/Camphor [[place] 1 applicatio TP BID #18 oint...g. 12/13/20 Unknown Rx Ointment] Naproxen 375 mg PO BID PRN #20 tablet 12/13/20 Unknown Rx cephALEXin [Keflex] 500 mg PO BID 7 Days #14 capsule 12/13/20 Unknown Rx methOCARBAMOL [Robaxin TAB] 500 mg PO BID PRN #14 tab 12/13/20 Unknown Rx medroxyPROGESTERone ACETATE 5 mg PO QDAY #7 11/19/21 Unknown Rx [Provera] Allergies Allergy/AdvReac Type Severity Reaction Status Date / Time No Known Allergies Allergy Verified 12/13/20 12:13 ED Review of Systems ROS: Stated complaint: HEAVY CLOTTING CYCLE Other details as noted in HPI Constitutional: see HPI Eyes: as per HPI ENT: as per HPI Respiratory: no symptoms reported Cardiovascular: as per HPI. denies: chest pain, palpitations, dyspnea on exertion, orthopnea Gastrointestinal: denies: as per HPI, abdominal pain Genitourinary: abnormal menses. denies: urgency, dysuria, hematuria Neurological: denies: as per HPI, headache, weakness Psychiatric: as per HPI ED Past Medical Hx - Past Medical History Previous Medical History?: No Additional medical history: endometriosis - Surgical History Past Surgical History?: No Additional Surgical History: tonsils removed, laser sx for cyst removal, bunion removed - Social History Smoking Status: Never Smoker Substance Use Type: Alcohol - Medications Home Medications: Home Medications Medication Instructions Recorded Confirmed Last Taken Type metroNIDAZOLE [Metronidazole] 500 mg PO BID #14 tablet 07/06/17 Unknown Rx traMADoL [Ultram 50 MG tab] 50 mg PO Q6HR PRN #30 tablet 07/06/17 Unknown Rx Dextromethorphan Polistirex 10 ml PO Q12HR PRN #1 gia.er.12h 08/18/20 Unknown Rx [Delsym] Levocetirizine Dihydrochloride 5 mg PO QHS PRN #30 tablet 08/18/20 Unknown Rx [Xyzal] Prednisone [predniSONE 5 mg (6-Day 5 mg PO .TAPER #1 tab.ds.pk 08/18/20 Unknown Rx Pack, 21 Tabs)] Ketorolac [Toradol] 10 mg PO Q6H PRN #15 tablet 09/26/20 Unknown Rx methOCARBAMOL [Robaxin TAB] 750 mg PO Q8H PRN #14 tablet 09/26/20 Unknown Rx Menthol/Camphor [[place] 1 applicatio TP BID #18 oint...g. 12/13/20 Unknown Rx Ointment] Naproxen 375 mg PO BID PRN #20 tablet 12/13/20 Unknown Rx cephALEXin [Keflex] 500 mg PO BID 7 Days #14 capsule 12/13/20 Unknown Rx methOCARBAMOL [Robaxin TAB] 500 mg PO BID PRN #14 tab 12/13/20 Unknown Rx medroxyPROGESTERone ACETATE 5 mg PO QDAY #7 11/19/21 Unknown Rx [Provera] ED Physical Exam - General Limitations: No Limitations General appearance: alert, in no apparent distress - Head Head exam: Present: atraumatic, normocephalic, normal inspection - Eye Eye exam: Present: normal appearance, PERRL - ENT ENT exam: Present: normal exam, normal orophraynx, mucous membranes moist - Neck Neck exam: Present: normal inspection. Absent: tenderness - Respiratory Respiratory exam: Present: normal lung sounds bilaterally. Absent: respiratory distress - Cardiovascular Cardiovascular Exam: Present: regular rate, normal rhythm, normal heart sounds - GI/Abdominal GI/Abdominal exam: Absent: tenderness, guarding, rebound - Extremities Exam Extremities exam: Present: normal inspection, full ROM. Absent: tenderness - Back Exam Back exam: Present: normal inspection, full ROM - Neurological Exam Neurological exam: Present: alert, oriented X3, CN II-XII intact, normal gait. Absent: motor sensory deficit - Psychiatric Psychiatric exam: Present: normal affect, normal mood - Skin Skin exam: Present: warm, dry ED Course Vital Signs 11/19/21 13:23 Temperature 98.5 F Pulse Rate 71 Respiratory 18 Rate Blood Pressure 133/91 [Left] O2 Sat by Pulse 99 Oximetry ED Medical Decision Making - Lab Data Result diagrams: 11/19/21 13:53 11/19/21 13:53 - Medical Decision Making Patient has no signs of significant anemia. Patient H&H are normal. Patient has no headache dizziness or weakness. will give patient Provera patient states she will see her [employer] tomorrow. Critical care attestation.: If time is entered above; I have spent that time in minutes in the direct care of this critically ill patient, excluding procedure time. ED Disposition Clinical Impression: Dysfunctional uterine bleeding Disposition: HOME / SELF CARE / HOMELESS Is pt being admited?: No Does the pt Need Aspirin: No Condition: Stable Instructions: Metrorrhagia, Abnormal Uterine Bleeding, [id number] Prescriptions: medroxyPROGESTERone ACETATE [Provera] 5 mg PO QDAY #7
== END 2021-11-20 02:43 | disposition home or self-care (01) ==
LOC: ED 12:57
DX: N93.9 Abnormal uterine and vaginal bleeding, unspecified (principal); F10.20 Alcohol dependence, uncomplicated
CPT/HCPCS: 36415; 80053; 84702; 85025; 99283